=== PATIENT | female | born 1955 | race Caucasian/White ===

== ENCOUNTER 2017-09-14 15:24 | Emergency (ER) | payer BC ==
[2017-09-14] MEDS ORDERED: Aspirin 81 MG Tab.Chew PO ONE (15:28)
[2017-09-14] MEDS ORDERED: Sodium Chloride 0.9% 1,000 ML IV ONE (15:28)
--- NOTE | 2017-09-14 15:39 | EDM.PDOC ---
ED HPI GENERAL MEDICAL PROBLEM - General Chief Complaint: Chest Pain Stated Complaint: CHEST PAIN Time Seen by Provider: 09/14/17 15:32 Source of Information: Reports: Patient History Limitations: Reports: No Limitations - History of Present Illness INITIAL COMMENTS - FREE TEXT/NARRATIVE: HISTORY AND PHYSICAL: History of present illness: Patient is a 61-year-old female who presents to the emergency room with complaints of left sided chest pain and cough for the past 2 days. Patient attributes her symptoms to getting her nails done yesterday and believes she "breathe then the dust" from the nail chemicals. She denies any fever, chills, shortness of breath, abdominal pain, nausea, vomiting, diarrhea or constipation. No diaphoresis or pain that radiates anywhere. No previous history of cardiac disease. She does have a history of asthma which she uses an albuterol rescue inhaler. She did use that prior to arrival without relief. Review of systems: As per history of present illness and below otherwise all systems reviewed and negative. Past medical history: As per history of present illness and as reviewed below otherwise noncontributory. Surgical history: As per history of present illness and as reviewed below otherwise noncontributory. Social history: No reported history of drug or alcohol abuse. Family history: As per history of present illness and as reviewed below otherwise noncontributory. Physical exam: General: Developed and well-nourished 61-year-old female. Alert and oriented. Nontoxic appearing and in no acute distress. HEENT: Atraumatic, normocephalic, pupils equal and reactive bilaterally, negative for conjunctival pallor or scleral icterus, mucous membranes moist, throat clear, neck supple, nontender, trachea midline. No drooling or trismus noted. No meningeal signs Lungs: Fine expiratory wheezing to posterior lower lobes bilat, otherwise clear to auscultation, breath sounds equal bilaterally, chest nontender. Dry cough noted Heart: S1S2, regular rate and rhythm without overt murmur Abdomen: Soft, nondistended, nontender. Negative for masses or hepatosplenomegaly. Negative for costovertebral tenderness. Pelvis: Stable nontender. Genitourinary: Deferred. Rectal: Deferred. Skin: Intact, warm, dry. No lesions or rashes noted. Extremities: Atraumatic, negative for cords or calf pain. Neurovascular unremarkable. Neuro: Awake, alert, oriented. Cranial nerves II through XII unremarkable. Cerebellum unremarkable. Motor and sensory unremarkable throughout. Exam nonfocal. Notes: Lab work is unremarkable. Her EKG shows a normal sinus rhythm with a rate of 76. Chest x-ray is unremarkable, no evidence of infiltrate or pneumonia. Vital signs remained stable. Somewhat improved after the DuoNeb and Solu-Medrol. Did offer her admission which she declined. Due to patient's history of asthma and current complaints, will treat with Zpack and Medrol Dose Pack. Supportive care measures were reviewed and discussed. She voices understanding and is agreeable to plan of care. Diagnostics: CBC, CMP, troponin, EKG, 2 view chest x-ray Therapeutics: IV fluid, Solu-Medrol, aspirin, Duo Neb Impression: Bronchitis Plan: 1. Please take your antibiotic as prescribed. Medrol Dose pack (steriod) as directed. 2. Follow up with your primary care provider in the next 1-2 days. Return to the ED as needed and as discussed. Definitive disposition and diagnosis as appropriate pending reevaluation and review of above. Left Upper Chest Pain Score (Numeric/FACES): 0 - Related Data Allergies Allergy/AdvReac Type Severity Reaction Status Date / Time Penicillins Allergy Rash Verified 09/14/17 15:30 Home Meds: Home Meds Albuterol Sulfate [Proair Hfa] 8.5 gm IH QID PRN 09/14/17 [History] Levothyroxine [Sythroid] 100 mcg PO DAILY 09/14/17 [History] Naproxen Na-Diphenhydramin HCl [Aleve Pm Caplet] 1 each PO BEDTIME 09/14/17 [ History] Naproxen Sodium [Aleve] 220 mg PO DAILY 09/14/17 [History] Omeprazole Magnesium [Prilosec Otc] 20 mg PO DAILY 09/14/17 [History] ED ROS GENERAL - Review of Systems Review Of Systems: ROS reveals no pertinent complaints other than HPI. ED EXAM, GENERAL - Physical Exam Exam: See Below (See dictation) Course - Vital Signs Last Recorded V/S: Last Vital Signs Temp 98.1 F 09/14/17 15:31 Pulse 80 09/14/17 15:31 Resp 16 09/14/17 15:31 BP 174/40 H 09/14/17 15:31 Pulse Ox 96 09/14/17 15:31 - Orders/Labs/Meds Orders: Active Orders 24 hr Category Date Time Status EKG Documentation Completion [RC] STAT Care 09/14/17 15:28 Active RT Aerosol Therapy [RC] ASDIRECTED Care 09/14/17 16:41 Ordered Chest 2V [CR] Stat Exams 09/14/17 15:40 Ordered Labs: Laboratory Tests 09/14/17 09/14/17 Range/Units 15:35 15:35 WBC 7.07 (4.0-11.0) K/uL RBC 4.81 (4.30-5.90) M/uL Hgb 13.2 (12.0-16.0) g/dL Hct 41.2 (36.0-46.0) % MCV 85.7 (80.0-98.0) fL MCH 27.4 (27.0-32.0) pg MCHC 32.0 (31.0-37.0) g/dL RDW Std Deviation 41.6 (28.0-62.0) fl RDW Coeff of Tammi 13 (11.0-15.0) % Plt Count 304 (150-400) K/uL MPV 9.30 (7.40-12.00) fL Neut % (Auto) 55.2 (48.0-80.0) % Lymph % (Auto) 35.4 (16.0-40.0) % [place] % (Auto) 6.5 (0.0-15.0) % Eos % (Auto) 2.5 (0.0-7.0) % Baso % (Auto) 0.4 (0.0-1.5) % Neut # (Auto) 3.9 (1.4-5.7) K/uL Lymph # (Auto) 2.5 H (0.6-2.4) K/uL [place] # (Auto) 0.5 (0.0-0.8) K/uL Eos # (Auto) 0.2 (0.0-0.7) K/uL Baso # (Auto) 0.0 (0.0-0.1) K/uL Nucleated RBC % 0.0 /100WBC Nucleated RBCs # 0 K/uL Sodium 135 L (136-145) mmol/L Potassium 3.8 (3.5-5.1) mmol/L Chloride 101 (98-107) mmol/L Carbon Dioxide 28.5 (21.0-32.0) mmol/L BUN 14 (7.0-18.0) mg/dL Creatinine 0.7 (0.6-1.0) mg/dL Est Cr Clr Drug Dosing 62.16 mL/min Estimated GFR (MDRD) > 60.0 ml/min Glucose 105 (74-106) mg/dL Calcium 9.4 (8.5-10.1) mg/dL Total Bilirubin 0.5 (0.2-1.0) mg/dL AST 21 (15-37) IU/L ALT 21 (14-63) IU/L Alkaline Phosphatase 79 (46-116) U/L Troponin I < 0.050 (0.000-0.056) ng/mL Total Protein 7.3 (6.4-8.2) g/dL Albumin 3.8 (3.4-5.0) g/dL Globulin 3.5 (2.0-3.5) g/dL Albumin/Globulin Ratio 1.1 L (1.3-2.8) Meds: Medications Discontinued Medications Generic Name Dose Route Start Last Admin Trade Name Freq PRN Reason Stop Dose Admin Albuterol/Ipratropium 3 ml 09/14/17 16:41 09/14/17 17:04 Duoneb 3.0-0.5 Mg/3 Ml NEB 09/14/17 16:42 3 ml ONETIME ONE Administration Aspirin 324 mg 09/14/17 15:28 09/14/17 15:49 Aspirin PO 09/14/17 15:29 324 mg ONETIME ONE Administration Sodium Chloride 1,000 mls @ 999 mls/hr 09/14/17 15:28 09/14/17 15:49 Normal Saline IV 09/14/17 16:28 999 mls/hr STAT ONE Administration Methylprednisolone Sodium Succinate 125 mg 09/14/17 16:41 09/14/17 17:04 Solu-Medrol IVPUSH 09/14/17 16:42 125 mg ONETIME ONE Administration Departure - Departure Time of Disposition: 17:36 Disposition: Home, Self-Care 01 Clinical Impression: Bronchitis Referrals: PCP,None [Primary Care Provider] - Forms: ED Department Discharge Additional Instructions: The following information is given to patients seen in the emergency department who are being discharged to home. This information is to outline your options for follow-up care. We provide all patients seen in our emergency department with a follow-up referral. The need for follow-up, as well as the timing and circumstances, are variable depending upon the specifics of your emergency department visit. If you don't have a primary care physician on staff, we will provide you with a referral. We always advise you to contact your personal physician following an emergency department visit to inform them of the circumstance of the visit and for follow-up with them and/or the need for any referrals to a consulting specialist. The emergency department will also refer you to a specialist when appropriate. This referral assures that you have the opportunity for follow-up care with a specialist. All of these measure are taken in an effort to provide you with optimal care, which includes your follow-up. Under all circumstances we always encourage you to contact your private physician who remains a resource for coordinating your care. When calling for follow-up care, please make the office aware that this follow-up is from your recent emergency room visit. If for any reason you are refused follow-up, please contact the [facility] Emergency Department at and asked to speak to the emergency department charge nurse. [facility] [address] [place] [id number] 1. Please take your antibiotic as prescribed. Medrol Dose pack (steriod) as directed. 2. Follow up with your primary care provider in the next 1-2 days. Return to the ED as needed and as discussed. - My Orders Last 24 Hours: My Active Orders 09/14/17 15:28 EKG Documentation Completion [RC] STAT 09/14/17 15:40 Chest 2V [CR] Stat 09/14/17 16:41 RT Aerosol Therapy [RC] ASDIRECTED - Assessment/Plan Last 24 Hours: My Active Orders 09/14/17 15:28 EKG Documentation Completion [RC] STAT 09/14/17 15:40 Chest 2V [CR] Stat 09/14/17 16:41 RT Aerosol Therapy [RC] ASDIRECTED
[2017-09-14 16:14] LABS: CHLORIDE,CL 101 mmol/L (98-107); SODIUM,NA 135 mmol/L (136-145)
[2017-09-14] MEDS ORDERED: methylPREDNISolone Sodium Succinate 125 MG/2 ML SDV IVPUSH ONE (16:41)
[2017-09-14] MEDS ORDERED: Albuterol/Ipratropium 3.0-0.5 MG/3 ML Neb Soln NEB ONE (16:41)
--- NOTE | 2017-09-15 09:51 | CR ---
EXAM DATE: 09/14/17 PATIENT'S AGE: 61 Patient: FAISAL MALDONADO Facility: [place], [place] Site . Site : 1955 Study: XRay Chest [id number]/17/2018 5:20:39 PM Ordering Physician: Doctor White Final Report: INDICATION: pain, shortness of breath CHEST, PA AND LATERAL Upright PA and lateral radiographs of the chest were performed. Comparison: 02/15/2012. The lungs appear clear and there are no pleural effusions. Heart size and pulmonary vasculature appear normal. Visualized bones show no significant findings. IMPRESSION: No acute intrathoracic abnormality identified. DEJA FLORES MD [employer] Dictated by: Yash Flores MD @ 09/14/2017 17:22:58 (Electronic Signature) Report Signed by Proxy. [facility]
== END 2017-09-14 17:42 | disposition home or self-care (01) ==
LOC: MW.ED 15:24
DX: J40 Bronchitis, not specified as acute or chronic (principal); Z88.0 Allergy status to penicillin; Z79.899 Other long term (current) drug therapy
CPT/HCPCS: 36415; 71046; 80053; 84484; 85025; 93005; 94640; 96361; 96374; 99285; A9270; J2930; J7040; 99284

== ENCOUNTER 2019-03-09 05:47 | Emergency (ER) | payer BC ==
[2019-03-09] MEDS ORDERED: methylPREDNISolone Sodium Succinate 125 MG/2 ML SDV IM ONE (06:16)
[2019-03-09] MEDS ORDERED: hydrOXYzine HCl 25 MG Tab PO ONE (06:17)
--- NOTE | 2019-03-09 06:23 | EDM.PDOC ---
ED HPI GENERAL MEDICAL PROBLEM - General Chief Complaint: Skin Complaint Stated Complaint: RASH ON CHEST Time Seen by Provider: 03/09/19 06:10 - History of Present Illness INITIAL COMMENTS - FREE TEXT/NARRATIVE: HISTORY AND PHYSICAL: History of present illness: The patient is a 63-year-old female with a history of hypertension and hypothyroidism who presents with a rash which has been constant since February 28. She says that it seemed to worsen over the last 12 hours and is much more itchy and she has tried oral Benadryl in the past and changed laundry detergents as she thought that might be triggering it. She has noted it is very specific in its location which is around her waistline her inner thighs the flexure areas of her elbows and this morning there was some on her anterior neck and that worried her. She's had no oropharyngeal swelling no wheezing no work of breathing no fevers chills or upper respiratory symptoms nausea vomiting or diarrhea. She has no known trigger for this. She says that she was in [place] and this returned recently. Review of systems: As per history of present illness and below otherwise all systems reviewed and negative. Past medical history: As per history of present illness and as reviewed below otherwise noncontributory. Surgical history: As per history of present illness and as reviewed below otherwise noncontributory. Social history: No reported history of drug or alcohol abuse. Family history: As per history of present illness and as reviewed below otherwise noncontributory. Physical exam: General: Well-developed well-nourished female who is nontoxic and speaking clearly in the ED without breathlessness or hoarse voice. Vital signs were noted by me HEENT: Atraumatic, normocephalic, there is no facial swelling or oropharyngeal swelling negative for conjunctival pallor or scleral icterus, mucous membranes moist, throat clear, neck supple, nontender, trachea midline. Lungs: Clear to auscultation, breath sounds equal bilaterally, chest nontender. No wheezing stridor or work of breathing Heart: S1S2, regular rate and rhythm no overt murmurs Abdomen: Soft, nondistended, nontender. NABS Pelvis: Deferred Genitourinary: Deferred. Rectal: Deferred. Extremities: Atraumatic, range of motion without defects or deficits. Neurovascular unremarkable. Neuro: Awake, alert, oriented. Cranial nerves II through XII unremarkable. Cerebellum unremarkable. Motor and sensory unremarkable throughout. Exam nonfocal. Skin: At the elbow flexure areas bilaterally the area in the inferior axilla bilaterally and around the patient's waistline as well as inner thighs there is macules maculopapular rash seen which is not quite urticaria but is raised and the patient is actively scratching. The rash spares the anterior chest and there is a small area of erythema seen at her anterior neck which looks more like scratching than the maculopapular rash. It does not extend to the upper back and there is no facial involvement. Does not involve palms. Diagnostics: [] Therapeutics: Solu-Medrol Vistaril Impression: Contact dermatitis/allergic reaction Definitive disposition and diagnosis as appropriate pending reevaluation and review of above. - Related Data Allergies Allergy/AdvReac Type Severity Reaction Status Date / Time cat dander Allergy Airway Verified 03/09/19 06:09 Tightness horse dander Allergy Airway Verified 03/09/19 06:09 Tightness kiwi Allergy squirted Verified 03/09/19 06:09 in eye, blisters on eye lisinopril Allergy Cough Verified 03/09/19 06:09 Penicillins Allergy Rash Verified 03/09/19 06:09 Home Meds: Home Meds Albuterol Sulfate [Proair Hfa] 8.5 gm IH QID PRN 09/14/17 [History] Levothyroxine [Sythroid] 88 mcg PO DAILY 09/14/17 [History] Omeprazole Magnesium [Prilosec Otc] 20 mg PO DAILY 09/14/17 [History] Acetaminophen/Diphenhydramine [Tylenol Pm Ex-Strength Caplet] 2 tab PO BEDTIME 02/02/18 [History] Naproxen Sodium [Aleve] 1 tab PO ASDIRECTED PRN 02/02/18 [History] Past Medical History HEENT History: Reports: Other (See Below) Other HEENT History: glasses/contacts Cardiovascular History: Reports: Hypertension Respiratory History: Reports: Asthma Gastrointestinal History: Reports: GERD Genitourinary History: Reports: None Musculoskeletal History: Reports: Arthritis Endocrine/Metabolic History: Reports: Hypothyroidism, Obesity/BMI 30+ - Infectious Disease History Infectious Disease History: Reports: Chicken Pox, Measles - Past Surgical History Head Surgeries/Procedures: Reports: None GI Surgical History: Reports: Colonoscopy Other GI Surgeries/Procedures: bowel perf in colonoscopy Female Surgical History: Reports: Endometrial Ablation Social & Family History - Family History Family Medical History: Noncontributory - Tobacco Use Smoking Status *Q: Never Smoker - Caffeine Use Caffeine Use: Reports: Coffee, Soda - Recreational Drug Use Recreational Drug Use: No ED ROS GENERAL - Review of Systems Review Of Systems: ROS reveals no pertinent complaints other than HPI. ED EXAM, SKIN/RASH Exam: See Below (see Dictation) Course - Vital Signs Last Recorded V/S: Last Vital Signs Temp 36.3 C 03/09/19 06:04 Pulse 77 03/09/19 06:04 Resp 16 03/09/19 06:04 BP 130/69 03/09/19 06:04 Pulse Ox 97 03/09/19 06:04 - Orders/Labs/Meds Meds: Medications Discontinued Medications Generic Name Dose Route Start Last Admin Trade Name Freq PRN Reason Stop Dose Admin Hydroxyzine HCl 25 mg 03/09/19 06:17 Atarax PO 03/09/19 06:18 ONETIME ONE Methylprednisolone Sodium Succinate 125 mg 03/09/19 06:16 Solu-Medrol IM 03/09/19 06:17 ONETIME ONE Departure - Departure Time of Disposition: 06:22 Disposition: Home, Self-Care 01 Condition: Good Clinical Impression: Contact allergic reaction Contact dermatitis Qualifiers: Contact dermatitis type: unspecified - Discharge Information Referrals: Bhakti Blackmon MD [Primary Care Provider] - Additional Instructions: The following information is given to patients seen in the emergency department who are being discharged to home. This information is to outline your options for follow-up care. We provide all patients seen in our emergency department with a follow-up referral. The need for follow-up, as well as the timing and circumstances, are variable depending upon the specifics of your emergency department visit. If you don't have a primary care physician on staff, we will provide you with a referral. We always advise you to contact your personal physician following an emergency department visit to inform them of the circumstance of the visit and for follow-up with them and/or the need for any referrals to a consulting specialist. The emergency department will also refer you to a specialist when appropriate. This referral assures that you have the opportunity for followup care with a specialist. All of these measure are taken in an effort to provide you with optimal care, which includes your followup. Under all circumstances we always encourage you to contact your private physician who remains a resource for coordinating your care. When calling for followup care, please make the office aware that this follow-up is from your recent emergency room visit. If for any reason you are refused follow-up, please contact the [facility] emergency department at and ask to speak to the emergency department charge nurse. [facility] Primary care- Internal Medicine and Family [address] [address] Please continue to monitor the rash and use hypoallergenic products as we discussed. Try to explore your world for triggers and wear loose fitting clothes that do not provide friction to the areas that have the rash. The liver prescription you have been given and take as directed. Please call and schedule a follow-up appointment with your provider or one of hours for reevaluation further care as he may need more evaluation and testing of this rash. Return to ER as needed and as discussed
== END 2019-03-09 06:49 | disposition home or self-care (01) ==
LOC: MW.ED 05:47
DX: L23.9 Allergic contact dermatitis, unspecified cause (principal); I10 Essential (primary) hypertension; J45.909 Unspecified asthma, uncomplicated; K21.9 Gastro-esophageal reflux disease without esophagitis; E03.9 Hypothyroidism, unspecified; M19.90 Unspecified osteoarthritis, unspecified site; E66.9 Obesity, unspecified; Z68.41 Body mass index [BMI] 40.0-44.9, adult; Z88.0 Allergy status to penicillin; Z88.8 Allergy status to other drugs, medicaments and biological substances; Z91.018 Allergy to other foods; Z91.09 Other allergy status, other than to drugs and biological substances; Z79.899 Other long term (current) drug therapy; Z79.890 Hormone replacement therapy
CPT/HCPCS: 96372; 99282; A9270; J2930

== ENCOUNTER 2021-08-15 14:32 | Emergency (ER) | payer BC ==
[2021-08-15] MEDS ORDERED: predniSONE 20 MG Tab PO ONE (15:40)
[2021-08-15] MEDS ORDERED: Azithromycin 250 MG Tab PO SCH (15:45)
[2021-08-16] MEDS ORDERED: predniSONE 20 MG Tab PO SCH (08:00)
== END 2021-08-15 16:20 | disposition home or self-care (01) ==
LOC: MW.ED 14:32
DX: J40 Bronchitis, not specified as acute or chronic (principal); K21.9 Gastro-esophageal reflux disease without esophagitis; I10 Essential (primary) hypertension; E03.9 Hypothyroidism, unspecified; E66.9 Obesity, unspecified; Z68.43 Body mass index [BMI] 50.0-59.9, adult; Z88.0 Allergy status to penicillin; Z91.018 Allergy to other foods; Z91.09 Other allergy status, other than to drugs and biological substances; Z88.8 Allergy status to other drugs, medicaments and biological substances; Z79.899 Other long term (current) drug therapy
CPT/HCPCS: 71045; 93005; 99284; A9270; 99282

== ENCOUNTER 2023-04-15 10:11 | Emergency (ER) | payer MEDICARE, BC ==
[2023-04-15] MEDS ORDERED: Lidocaine 4% 1 each Patch TOP STA (11:08)
[2023-04-15] MEDS ORDERED: Ketorolac 30 MG/ML SDV IM ONE (11:08)
[2023-04-15 11:39] LABS: CORONAVIRUS COVID-19 NAA POSITIVE (NEGATIVE); INFLUENZA A NAA NEGATIVE (NEGATIVE); INFLUENZA B NAA NEGATIVE (NEGATIVE)
== END 2023-04-15 12:12 | disposition home or self-care (01) ==
LOC: MW.ED 10:11
DX: U07.1 COVID-19 (principal); I10 Essential (primary) hypertension; K21.9 Gastro-esophageal reflux disease without esophagitis; E03.9 Hypothyroidism, unspecified; E66.9 Obesity, unspecified; Z68.42 Body mass index [BMI] 45.0-49.9, adult; Z86.16 Personal history of COVID-19; Z88.0 Allergy status to penicillin; Z88.8 Allergy status to other drugs, medicaments and biological substances; Z91.048 Other nonmedicinal substance allergy status; Z91.018 Allergy to other foods; Z79.899 Other long term (current) drug therapy
CPT/HCPCS: 0240U; 96372; 99283; A9270; J1885

== ENCOUNTER 2023-08-06 14:24 | Emergency (ER) | payer BC | END 2023-08-06 15:16 | disposition home or self-care (01) | LOC: MW.ED 14:24 | DX: H66.93 Otitis media, unspecified, bilateral (principal); I10 Essential (primary) hypertension; J45.909 Unspecified asthma, uncomplicated; K21.9 Gastro-esophageal reflux disease without esophagitis; E03.9 Hypothyroidism, unspecified; E66.9 Obesity, unspecified; Z75.8 Other problems related to medical facilities and other health care; Z91.048 Other nonmedicinal substance allergy status; Z91.018 Allergy to other foods; Z88.8 Allergy status to other drugs, medicaments and biological substances; Z88.0 Allergy status to penicillin; Z79.899 Other long term (current) drug therapy; Z79.51 Long term (current) use of inhaled steroids; Z86.16 Personal history of COVID-19; Z86.19 Personal history of other infectious and parasitic diseases; Z68.43 Body mass index [BMI] 50.0-59.9, adult | CPT/HCPCS: 99283 ==

== ENCOUNTER 2025-02-23 09:21 | Emergency (ER) | payer BC, MEDICARE | END 2025-02-23 10:56 | disposition home or self-care (01) | LOC: MW.ED 09:21 | DX: H66.92 Otitis media, unspecified, left ear (principal); I10 Essential (primary) hypertension; E66.9 Obesity, unspecified; E03.9 Hypothyroidism, unspecified; J45.909 Unspecified asthma, uncomplicated; M19.90 Unspecified osteoarthritis, unspecified site; K21.9 Gastro-esophageal reflux disease without esophagitis; Z79.899 Other long term (current) drug therapy; Z79.890 Hormone replacement therapy; Z88.8 Allergy status to other drugs, medicaments and biological substances; Z88.0 Allergy status to penicillin; Z91.018 Allergy to other foods; Z68.43 Body mass index [BMI] 50.0-59.9, adult | CPT/HCPCS: 99282; A9270 ==